=== PATIENT | male | born 1960 | race Caucasian/White ===

== ENCOUNTER → 2024-02-09 15:55 | Outpatient (REF) | payer OTHER, SELFPAY | LOC: HWRCS 15:55 | PROVIDERS: ATTENDING PHYSICIAN Nurse Practitioner; FAMILY PHYSICIAN Family Medicine | DX: I25.10 Atherosclerotic heart disease of native coronary artery without angina pectoris (principal); I48.19 Other persistent atrial fibrillation; I42.0 Dilated cardiomyopathy | CPT/HCPCS: 93306 ==

== ENCOUNTER → 2025-02-09 07:07 | Outpatient (REF) | payer OTHER, SELFPAY | LOC: HWRCS 07:07 | PROVIDERS: ATTENDING PHYSICIAN Internal Medicine Cardiovascular Disease; FAMILY PHYSICIAN Family Medicine | DX: I25.10 Atherosclerotic heart disease of native coronary artery without angina pectoris (principal) | CPT/HCPCS: 93306 ==